=== PATIENT | male | born 1940 | race African-American/Black ===

== ENCOUNTER 2016-11-30 13:18 | Emergency (ER) | payer OTHER ==
[~2016-11-30] VITALS: Ht 175.3 cm; Wt 118.2 kg
[~2016-11-30 13:18] MED LIST: ADULT LOW DOSE81 M1 PO; ADVAIR 250/501 DISK IH; ASPIRIN81 M2 PO; BENICAR40 MG PO; BENTYL20 MG PO; CARDIZEM LA360 MG PO; CARDIZEM LA420 MG PO; CELEBREX200 MG PO; Coumadin dosing per PO; ENABLEX7.5 MG PO; ENDOCET 5-3251 EACH PO; ERGOCALCIF50000 UNIT PO; Ecotrin PO; FEOSOL325 MG PO; FINASTERIDE5 MG PO; Flonase BOTH NARES; HYDROCHLOROTHIA25 MG PO; LANSOPRAZOLE30 MG PO; LIDODERM 5% P1 PATCH PO; LITE COAT ASPI325 M1 PO; NEURONTIN300 MG PO; NIACIN500 M1 PO; NIACIN500 MG PO; Niacin PO; PRAVACHOL10 MG PO; PRILOSEC OTC20 MG PO; PROVENTIL HFA6.7 GM IH; Proventil,Ventolin H IH; SENOKOT S,PE1 TABLET PO; SINGULAIR10 MG PO; Singulair PO; TYLENOL EXTRA500 MG PO; ULTRACET TABLE1 EACH PO; ULTRACET1 TABLET PO; UROXATRAL10 MG PO; VENTOLIN HFA18 GM IH; VOLTAREN 1% GE100 GM TD; VOLTAREN 1% GE100 GM TP; Vicodin,Lortab 5/500 PO
[2016-11-30 14:13] LABS: EOSINOPHIL (%) 6.2 % (0-5); EOSINOPHIL COUNT 0.4 K/uL (0-0.3); HEMATOCRIT 35.3 % (38.0-50.0); IMMATURE GRANULOCYTE (%) 0.3 % (0.0-0.7); INSTRUMENT ABS NEUTROPHIL CT 4.3 K/uL; LYMPHOCYTE COUNT 1.2 K/uL (1.0-2.8); MCH 30.5 PG (29.0-34.0); MCHC 33.1 G/DL (30.0-36.0); MCV 92.2 FL (86-99); MEAN PLAT.VOLUME 10.7 uM^3 (9.0-12.4); MONOCYTE (%) 7.3 % (3-12); MONOCYTE COUNT 0.5 K/uL (0-0.8); NEUTROPHIL (%) 66.7 % (45-76); NEUTROPHIL COUNT 4.3 K/uL (1.8-6.4); PLATELET COUNT 173 K/uL (156-360); RED BLOOD COUNT 3.83 M/uL (4.00-5.50); WHITE BLOOD COUNT 6.4 K/uL (4.1-10.2)
[2016-11-30 14:22] LABS: CHLORIDE 102 mEq/L (99-109); POTASSIUM 3.4 mEq/L (3.7-5.4); SODIUM 138 mEq/L (136-147)
[2016-11-30 14:23] LABS: D-DIMER ELISA 0.36 mg/L FEU (< 0.57)
[2016-11-30 14:24] LABS: GLUCOSE 87 mg/dL (70-99)
[2016-11-30 14:25] LABS: ANION GAP 8 MEQ/L (2-14)
[2016-11-30 14:26] LABS: TOTAL BILIRUBIN 0.4 mg/dL (0.0-1.0)
[2016-11-30 14:28] LABS: ALKALINE PHOSPHATASE 56 IU/L (3-129); GFR ESTIMATE (CALCULATED) > 59 mL/min/
[2016-11-30 14:29] LABS: UREA NITROGEN (BUN) 22 mg/dL (9-23)
[2016-11-30 14:31] LABS: LIPASE 20 U/L (1.0-51.0)
[2016-11-30 14:34] LABS: TROP-I INTERPRETATION NEGATIVE; TROPONIN-I < 0.01 ng/mL (0.0-0.30)
[2016-11-30 15:51] VITALS: BP 195/97
== END 2016-11-30 16:30 | disposition home or self-care (01) ==
LOC: EME → EDBD 13:18 → EME 13:18
PROVIDERS: Emergency Medicine
DX: R07.9 Chest pain, unspecified (principal); Z86.718 Personal history of other venous thrombosis and embolism; Z96.653 Presence of artificial knee joint, bilateral; Z88.0 Allergy status to penicillin
CPT/HCPCS: 71020; 80053; 83690; 84484; 85025; 85379; 93005; 99281; 99285

== ENCOUNTER → 2017-01-12 | Outpatient (CLI) | payer OTHER | END | disposition home or self-care (01) | LOC: NUC 12-31 11:00 | DX: R93.7 Abnormal findings on diagnostic imaging of other parts of musculoskeletal system (principal); Z96.653 Presence of artificial knee joint, bilateral | CPT/HCPCS: 78306; A9503 ==

== ENCOUNTER 2017-03-09 09:25 | Observation (INO) | payer OTHER ==
[~2017-03-09] VITALS: Ht 175.3 cm; Wt 111.9 kg
[~2017-03-09 09:25] MED LIST changes: +ADALAT CC 30 MG30 MG PO; +ADVAIR 500/501 DISK IH; +DOCUSATE SODIU100 MG PO; +FIBER THERAPY500 MG PO; +GABAPENTIN300 MG PO; +IMDUR60 MG PO; +LIDODERM 5% P1 PATCH TD; +MYRBETRIQ50 MG PO; +NITROSTAT0.4 MG SL; +PROBIOTIC250 MG PO; +RANEXA500 MG PO; +SPIRONOLACTONE25 MG PO; +TAZTIA XT300 M1 PO
[2017-03-09 10:08] LABS: EOSINOPHIL (%) 1.7 % (0-5); EOSINOPHIL COUNT 0.1 K/uL (0-0.3); HEMATOCRIT 33.1 % (38.0-50.0); IMMATURE GRANULOCYTE (%) 0.3 % (0.0-0.7); INSTRUMENT ABS NEUTROPHIL CT 4.2 K/uL; LYMPHOCYTE COUNT 1.1 K/uL (1.0-2.8); MCH 30.7 PG (29.0-34.0); MCHC 33.2 G/DL (30.0-36.0); MCV 92.5 FL (86-99); MEAN PLAT.VOLUME 10.3 uM^3 (9.0-12.4); MONOCYTE (%) 7.3 % (3-12); MONOCYTE COUNT 0.4 K/uL (0-0.8); NEUTROPHIL (%) 71.3 % (45-76); NEUTROPHIL COUNT 4.2 K/uL (1.8-6.4); PLATELET COUNT 170 K/uL (156-360); RBC DIS.WIDTH-CV 13.1 % (11.8-14.6); RBC DIS.WIDTH-SD 44.4 % (39-53); RED BLOOD COUNT 3.58 M/uL (4.00-5.50); WHITE BLOOD COUNT 5.9 K/uL (4.1-10.2)
[2017-03-09 10:16] LABS: PROTHROMBIN TIME 11.2 SEC (10.2-12.9)
[2017-03-09 10:17] LABS: CHLORIDE 103 mEq/L (99-109); SODIUM 136 mEq/L (136-147)
[2017-03-09 10:19] LABS: GLUCOSE 92 mg/dL (70-99); PTT 29.5 SEC (25-37)
[2017-03-09 10:20] LABS: ANION GAP 7 MEQ/L (2-14)
[2017-03-09 10:21] LABS: TOTAL BILIRUBIN 0.4 mg/dL (0.0-1.0)
[2017-03-09 10:23] LABS: ALKALINE PHOSPHATASE 51 IU/L (3-129); GFR ESTIMATE (CALCULATED) 50 mL/min/
[2017-03-09 10:24] LABS: DIRECT BILIRUBIN 0.2 mg/dL (0.0-0.3); UREA NITROGEN (BUN) 28 mg/dL (9-23)
[2017-03-09 10:26] LABS: LIPASE 30 U/L (1.0-51.0)
[2017-03-09 10:31] LABS: TROP-I INTERPRETATION NEGATIVE; TROPONIN-I < 0.01 ng/mL (0.0-0.30)
[2017-03-09] MEDS ORDERED: BUSPAR10 MG PO ×2 (13:19→13:20)
[2017-03-09] MEDS ORDERED: PREDNISONE10 MG PO (13:21)
[2017-03-09] MEDS ORDERED: PROTONIX40 MG PO (13:22)
[2017-03-09] MEDS ORDERED: IMDUR60 MG PO (13:26)
[2017-03-09 14:51] VITALS: BP 138/81
[2017-03-09 17:16] LABS: TROP-I INTERPRETATION NEGATIVE; TROPONIN-I < 0.01 ng/mL (0.0-0.30)
[2017-03-09 19:37] VITALS: BP 100/55
[2017-03-09 23:38] LABS: TROP-I INTERPRETATION NEGATIVE; TROPONIN-I < 0.01 ng/mL (0.0-0.30)
[2017-03-10 00:02] VITALS: BP 119/56
[2017-03-10 04:06] VITALS: BP 108/56
[2017-03-10 07:13] VITALS: BP 136/74
[2017-03-10 11:38] VITALS: BP 131/72
[2017-03-11] MEDS ORDERED: ADVAIR 500/501 DISK IH (11:33)
== END 2017-03-10 13:47 | disposition home or self-care (01) ==
LOC: EME → EDBD 09:25 → EME 09:25 → EDOF 13:35 → 5WEST 13:35 → EDOF 13:35 → ENRESERV 13:36 → 5WEST 14:36
PROVIDERS: Emergency Medicine; Internal Medicine
DX: R07.9 Chest pain, unspecified (principal); G47.33 Obstructive sleep apnea (adult) (pediatric); I12.9 Hypertensive chronic kidney disease with stage 1 through stage 4 chronic kidney disease, or unspecified chronic kidney disease; N18.2 Chronic kidney disease, stage 2 (mild); E78.5 Hyperlipidemia, unspecified; I25.10 Atherosclerotic heart disease of native coronary artery without angina pectoris; D64.9 Anemia, unspecified; J45.909 Unspecified asthma, uncomplicated; D47.2 Monoclonal gammopathy; C61 Malignant neoplasm of prostate; I27.2 Other secondary pulmonary hypertension; Z86.718 Personal history of other venous thrombosis and embolism; Z79.01 Long term (current) use of anticoagulants; Z96.653 Presence of artificial knee joint, bilateral; Z88.0 Allergy status to penicillin; Z88.8 Allergy status to other drugs, medicaments and biological substances; Z82.49 Family history of ischemic heart disease and other diseases of the circulatory system; Z80.42 Family history of malignant neoplasm of prostate; Z82.0 Family history of epilepsy and other diseases of the nervous system
CPT/HCPCS: 71010; 80048; 80076; 83605; 83690; 83880; 84484; 85025; 85379; 85610; 85730; 93005; 94640; 94640 76; 99202; 99281; 99283; G0378; J1644; J7030; J7512

== ENCOUNTER → 2017-03-14 | Outpatient (CLI) | payer OTHER ==
[~2017-03-14] VITALS: Ht 175.3 cm; Wt 109.0 kg
[~2017-03-14] MED LIST changes: +BUSPAR10 MG PO; +PREDNISONE10 MG PO; +PROTONIX40 MG PO
== END | disposition home or self-care (01) ==
LOC: AMB 14:21
PROC: 0DB68ZX Excision of Stomach, Via Natural or Artificial Opening Endoscopic, Diagnostic (ICD-10-PCS; principal; 2017-03-14)
DX: R07.89 Other chest pain (principal); K21.9 Gastro-esophageal reflux disease without esophagitis; J44.9 Chronic obstructive pulmonary disease, unspecified; E78.5 Hyperlipidemia, unspecified; C61 Malignant neoplasm of prostate; Z79.82 Long term (current) use of aspirin; Z88.0 Allergy status to penicillin
CPT/HCPCS: 88305; 88342 TC

== ENCOUNTER 2017-04-27 14:30 | Emergency (ER) | payer OTHER ==
[~2017-04-27] VITALS: Ht 175.3 cm; Wt 112.4 kg
[2017-04-27 14:49] LABS: HEMATOCRIT 32.5 % (38.0-50.0); MCH 31.3 PG (29.0-34.0); MCHC 33.2 G/DL (30.0-36.0); MCV 94.2 FL (86-99); MEAN PLAT.VOLUME 9.6 uM^3 (9.0-12.4); PLATELET COUNT 121 K/uL (156-360); RBC DIS.WIDTH-CV 12.6 % (11.8-14.6); RBC DIS.WIDTH-SD 43.5 % (39-53); RED BLOOD COUNT 3.45 M/uL (4.00-5.50); WHITE BLOOD COUNT 3.7 K/uL (4.1-10.2)
[2017-04-27 15:05] LABS: CHLORIDE 105 mEq/L (99-109); POTASSIUM 3.9 mEq/L (3.7-5.4); SODIUM 140 mEq/L (136-147)
[2017-04-27 15:06] LABS: GLUCOSE 124 mg/dL (70-99)
[2017-04-27 15:08] LABS: ANION GAP 12 MEQ/L (2-14)
[2017-04-27 15:10] LABS: GFR ESTIMATE (CALCULATED) 58 mL/min/
[2017-04-27 15:11] LABS: UREA NITROGEN (BUN) 19 mg/dL (9-23)
[2017-04-27 15:18] LABS: TROP-I INTERPRETATION NEGATIVE; TROPONIN-I < 0.01 ng/mL (0.0-0.30)
[2017-04-27 16:40] VITALS: BP 176/101
== END 2017-04-27 17:08 | disposition home or self-care (01) ==
LOC: EME 14:30
DX: R07.89 Other chest pain (principal); J45.909 Unspecified asthma, uncomplicated; Z86.718 Personal history of other venous thrombosis and embolism; Z85.46 Personal history of malignant neoplasm of prostate; Z79.82 Long term (current) use of aspirin; Z79.52 Long term (current) use of systemic steroids
CPT/HCPCS: 71020; 80048; 84484; 85027; 93005; 99281; 99284

== ENCOUNTER 2017-09-29 18:26 | Emergency (ER) | payer OTHER ==
[~2017-09-29] VITALS: Ht 175.3 cm; Wt 114.2 kg
[2017-09-29 18:54] LABS: HEMATOCRIT 32.3 % (38.0-50.0); HEMOGLOBIN 10.8 G/DL (12.5-16.6); MCH 31.7 PG (29.0-34.0); MCHC 33.4 G/DL (30.0-36.0); MCV 94.7 FL (86-99); PLATELET COUNT 160 K/uL (156-360); RBC DIS.WIDTH-CV 12.5 % (11.8-14.6); RBC DIS.WIDTH-SD 43.7 % (39-53); RED BLOOD COUNT 3.41 M/uL (4.00-5.50); WHITE BLOOD COUNT 4.1 K/uL (4.1-10.2)
[2017-09-29 19:03] LABS: CHLORIDE 105 mEq/L (99-109); POTASSIUM 4.5 mEq/L (3.7-5.4); SODIUM 140 mEq/L (136-147)
[2017-09-29 19:05] LABS: GLUCOSE 89 mg/dL (70-99)
[2017-09-29 19:09] LABS: CREATININE 1.4 mg/dL (0.6-1.3); GFR ESTIMATE (CALCULATED) > 59 mL/min/ (58.99-99999)
[2017-09-29 19:10] LABS: UREA NITROGEN (BUN) 22 mg/dL (9-23)
[2017-09-29 19:15] LABS: TROP-I INTERPRETATION NEGATIVE; TROPONIN-I 0.02 ng/mL (0.0-0.30)
[2017-09-29 21:26] VITALS: BP 185/104
== END 2017-09-29 21:28 | disposition home or self-care (01) ==
LOC: EME 18:26
DX: R00.2 Palpitations (principal); R07.9 Chest pain, unspecified; R53.1 Weakness; I10 Essential (primary) hypertension; J45.909 Unspecified asthma, uncomplicated; Z86.718 Personal history of other venous thrombosis and embolism; Z79.82 Long term (current) use of aspirin; Z79.52 Long term (current) use of systemic steroids; Z85.46 Personal history of malignant neoplasm of prostate; Z92.3 Personal history of irradiation
CPT/HCPCS: 71046; 80048; 84484; 85027; 93005; 99281; 99284

== ENCOUNTER 2017-12-08 23:47 | Observation (INO) | payer OTHER ==
[~2017-12-08] VITALS: Ht 175.3 cm; Wt 111.8 kg
[2017-12-09 00:25] LABS: HEMATOCRIT 33.7 % (38.0-50.0); HEMOGLOBIN 11.6 G/DL (12.5-16.6); MCH 32.3 PG (29.0-34.0); MCHC 34.4 G/DL (30.0-36.0); MCV 93.9 FL (86-99); PLATELET COUNT 158 K/uL (156-360); RBC DIS.WIDTH-CV 12.2 % (11.8-14.6); RBC DIS.WIDTH-SD 42.5 % (39-53); RED BLOOD COUNT 3.59 M/uL (4.00-5.50)
[2017-12-09 00:34] LABS: CHLORIDE 101 mEq/L (99-109); POTASSIUM 3.6 mEq/L (3.7-5.4); SODIUM 138 mEq/L (136-147)
[2017-12-09 00:36] LABS: GLUCOSE 83 mg/dL (70-99)
[2017-12-09 00:39] LABS: CREATININE 1.2 mg/dL (0.6-1.3); GFR ESTIMATE (CALCULATED) > 59 mL/min/ (58.99-99999)
[2017-12-09 00:40] LABS: UREA NITROGEN (BUN) 23 mg/dL (9-23)
[2017-12-09 00:46] LABS: TROP-I INTERPRETATION NEGATIVE; TROPONIN-I 0.01 ng/mL (0.0-0.30)
[2017-12-09] MEDS ORDERED: NORVASC10 MG PO (03:26)
[2017-12-09] MEDS ORDERED: CELEBREX200 MG PO (03:27)
[2017-12-09] MEDS ORDERED: CYMBALTA30 MG PO (03:28)
[2017-12-09] MEDS ORDERED: ZESTRIL10 MG PO (03:30)
[2017-12-09] MEDS ORDERED: ATIVAN0.5 MG PO (03:31)
[2017-12-09] MEDS ORDERED: ZANTAC150 MG PO (03:32)
[2017-12-09 04:32] VITALS: BP 127/78
[2017-12-09 08:04] VITALS: BP 139/85
[2017-12-09 12:09] VITALS: BP 129/78
[2017-12-09 13:46] LABS: TROP-I INTERPRETATION NEGATIVE; TROPONIN-I < 0.01 ng/mL (0.0-0.30)
[2017-12-09 16:10] VITALS: BP 157/79
[2017-12-09 20:00] VITALS: BP 178/88
[2017-12-09 23:49] VITALS: BP 113/64
[2017-12-10 07:47] VITALS: BP 135/75
[2017-12-10] MEDS ORDERED: IMDUR120 MG PO (09:46)
[2017-12-10] MEDS ORDERED: LISINOPRIL10 MG PO (09:46)
[2017-12-10 12:06] VITALS: BP 116/69
== END 2017-12-10 14:08 | disposition home or self-care (01) ==
LOC: EME 23:47 → EDOF 12-09 02:33 → ENRESERV 12-09 02:34 → 4SOUTH 12-09 04:17
PROVIDERS: Physician Assistant Medical
DX: R07.9 Chest pain, unspecified (principal); R00.1 Bradycardia, unspecified; I25.10 Atherosclerotic heart disease of native coronary artery without angina pectoris; I12.9 Hypertensive chronic kidney disease with stage 1 through stage 4 chronic kidney disease, or unspecified chronic kidney disease; N18.9 Chronic kidney disease, unspecified; E78.5 Hyperlipidemia, unspecified; F41.9 Anxiety disorder, unspecified; Z92.3 Personal history of irradiation; G47.33 Obstructive sleep apnea (adult) (pediatric); C61 Malignant neoplasm of prostate; Z86.718 Personal history of other venous thrombosis and embolism; D47.2 Monoclonal gammopathy; E66.9 Obesity, unspecified; Z68.36 Body mass index [BMI] 36.0-36.9, adult; I47.1 Supraventricular tachycardia; J45.909 Unspecified asthma, uncomplicated; M19.90 Unspecified osteoarthritis, unspecified site; Z72.0 Tobacco use; Z96.653 Presence of artificial knee joint, bilateral; Z79.82 Long term (current) use of aspirin; Z98.890 Other specified postprocedural states; Z83.2 Family history of diseases of the blood and blood-forming organs and certain disorders involving the immune mechanism; Z82.0 Family history of epilepsy and other diseases of the nervous system; Z82.49 Family history of ischemic heart disease and other diseases of the circulatory system; Z88.0 Allergy status to penicillin; Z88.8 Allergy status to other drugs, medicaments and biological substances
CPT/HCPCS: 71046; 80048; 84484; 85027; 85379; 93005; 93971; 94640; 94640 76; 99202; 99281; 99285; G0378; J1644